=== PATIENT | female | born 1945 | race Caucasian/White ===

== ENCOUNTER 2020-11-09 18:31 | Inpatient (IN) | payer BC, OTHER ==
[~2020-11-09] VITALS: Ht 160 cm; Wt 83.0 kg
[2020-11-09 18:33] VITALS: Ht 160 cm; Wt 83.0 kg
[2020-11-09 19:36] LABS: BASOPHIL % 0.3 % (0.2-1.3); PLATELET COUNT 346 x10^3mcL (179-408)
[2020-11-09 19:39] LABS: CALCIUM 8.5 mg/dL (8.5-10.1); CARBON DIOXIDE 23.5 mmol/L (21-32); CHLORIDE SERUM 98 mmol/L (98-107); CREATININE SERUM 1.5 mg/dL (0.6-1.0); GLUCOSE SERUM 306 mg/dL (74-106); POTASSIUM SERUM 4.2 mmol/L (3.5-5.1); SODIUM SERUM 134 mmol/L (136-145)
--- NOTE | 2020-11-09 19:41 | NUR ---
PT TAKEN TO EKG WITH EMT KEVIN.
[2020-11-09 19:43] LABS: ALKALINE PHOSPHATASE 63 U/L (46-116); ALT/SGPT 19 U/L (14-59); AST/SGOT 24 U/L (15-37); BILIRUBIN TOTAL 0.3 mg/dL (0.20-1.00); LACTIC DEHYDROGENASE (LDH) 298 U/L (100-190)
[2020-11-09 19:44] LABS: ALBUMIN 3.2 g/dL (3.4-5.0); TOTAL PROTEIN, SERUM 8.7 g/dL (6.4-8.2)
[2020-11-09 19:45] LABS: C REACTIVE PROTEIN 16.8 mg/dL (<=0.9)
[2020-11-09 20:11] LABS: UA SPECIFIC GRAVITY 1.015 (1.005-1.035); microscopic required? YES; urine erythrocyte 1+ (NEGATIVE)
--- NOTE | 2020-11-09 21:18 | NUR ---
PT FOUND IN HALLWAY, AND STATED SHE WAS TAKEN BACK FOR BLOOD DRAW, HOWEVER PT WAS COUGHING AND D-SATTING. PT LABS NOT DRAWN, BROUGHT BACK TO TENT PT IS COVID+ AND PLACED ON 2L NC O2. PT SAT NOW @94%.
--- NOTE | 2020-11-09 22:55 | NUR ---
PT IS SATTING AT 97% ON 2L NC. NO ACUTE DISTRESS NOTED AT THIS TIME.
--- NOTE | 2020-11-10 01:02 | NUR ---
PT PRESENTS TO ED WITH C/C OF "ASTHMA" X3 DAYS. PT REPORTS +COVID TEST X8 DAYS AGO AND INCREASED SOB X3 DAYS. PT DENIES N/V/D/C, DENIES FEVERS, AND HAS NON PRODUCTIVE COUGH. PT IS ON 4L VIA NC. PT IS AA&OX4, RESP E/U, NAD NOTED AT THIS TIME. CANCER REGISTRAR TELEPHONE USED, SPOKE WITH SEAN TO COMMUNICATE WITH PT. CALL LIGHT IS WITHIN REACH.
--- NOTE | 2020-11-10 01:07 | NUR ---
PT DAUGHTER WOULD LIKE TO BE UPDATED WHEN POSSIBLE. [phone] JAVON ORELLANA.
--- NOTE | 2020-11-10 01:56 | NUR ---
PT MEDICATED PER MD ORDER. PT VERBALIZED UNDERSTANDING OF MEDICATION PRIOR TO ADMINISTRATION, CALL LIGHT IS WITHIN REACH. UTILIZED ENVIRONMENTAL HEALTH SAFETY MANAGER TELEPHONES WITH SHOT HOLE SHOOTER SEAN TO EDUCATE PT ON MEDS.
--- NOTE | 2020-11-10 02:35 | NUR ---
PT MEDICATED PER MD ORDER. PT VERBALIZED UNDERSTANDING OF MEDICATION PRIOR TO ADMINISTRATION. CALL LIGHT IN REACH.
--- NOTE | 2020-11-10 02:52 | NUR ---
ATTEMPTED TO CALL REPORT TO ERNESTINA BURRIS, TOLD THAT WILL RETURN MY CALL SHORTLY.
--- NOTE | 2020-11-10 03:09 | NUR ---
REPORT GIVEN TO ERNESTINA BURRIS TO ASSUME CARE OF PT.
[2020-11-10 04:12] VITALS: BP 129/67
[2020-11-10 06:24] VITALS: BP 129/68
--- NOTE | 2020-11-10 06:49 | NUR ---
RECEIVED PT FROM ER AT 0330. AOX4, MOZAMBICAN SPEAKING. PT IS ON 4L O2 VIA NC AND SATURATING AT 99%. PT DENIES PAIN BUT IS HAVING A WET COUGH. MANAGED TO SLEEP THE REST OF THE NIGHT. ALL NEEDS ATTENDED TO.
--- NOTE | 2020-11-10 08:00 | NUR ---
RECD PT AAOX4; CYMRAES SPEAKING; NO SOB; O2 3L/NC IN USE; LUNGS DIM ON AUSCULTATION BRITNEY; DENIES CP; PULSES PALPABLE BUE AND BLE; NO EDEMA NOTED; ABD IS SOFT AND NONTENDER; BRP; VOIDS FREELY; SL ON THE LFA INTACT; COVID PRECAUTION IN PLACE; FALL AND SAFETY PRECAUTION REINFORCED; WILL CONTINUE TO MONITOR STATUS.
[2020-11-10 08:49] VITALS: BP 156/74
[2020-11-10 11:21] LABS: BASOPHIL % 0.5 % (0.2-1.3); PLATELET COUNT 325 x10^3mcL (179-408)
[2020-11-10 11:39] LABS: ALKALINE PHOSPHATASE 58 U/L (46-116); ALT/SGPT 23 U/L (14-59); AST/SGOT 25 U/L (15-37); BILIRUBIN TOTAL 0.24 mg/dL (0.20-1.00); CALCIUM 9.3 mg/dL (8.5-10.1); CARBON DIOXIDE 22.8 mmol/L (21-32); CHLORIDE SERUM 102 mmol/L (98-107); CREATININE SERUM 1.4 mg/dL (0.6-1.0); GLUCOSE SERUM 191 mg/dL (74-106); POTASSIUM SERUM 3.8 mmol/L (3.5-5.1); SODIUM SERUM 138 mmol/L (136-145)
[2020-11-10 11:41] LABS: ALBUMIN 2.9 g/dL (3.4-5.0); TOTAL PROTEIN, SERUM 8.5 g/dL (6.4-8.2)
[2020-11-10 12:04] VITALS: BP 152/62
--- NOTE | 2020-11-10 13:30 | NUR ---
PT SIGNED THE CONSENT FOR PLASMA CONVALESCENT WITH VERBAL UNDERSTANDING; QUESTIONS AND CONCERNS ANSWERED; SALES PLANNING ANALYST (EZEKIEL MUHAMMAD) USED; DR. BELLA MADE AWARE ABOUT PT'S REQUEST FOR COUGH MED.
[2020-11-10 16:44] VITALS: BP 145/60
--- NOTE | 2020-11-10 17:15 | NUR ---
NO SOB THIS SHIFT. O2 USE IS ON/OFF.
[2020-11-10 17:20] LABS: ALKALINE PHOSPHATASE 58 U/L (46-116); ALT/SGPT 23 U/L (14-59); AST/SGOT 18 U/L (15-37); BILIRUBIN TOTAL 0.25 mg/dL (0.20-1.00); CALCIUM 9.4 mg/dL (8.5-10.1); CARBON DIOXIDE 20.5 mmol/L (21-32); CHLORIDE SERUM 103 mmol/L (98-107); CREATININE SERUM 1.3 mg/dL (0.6-1.0); GLUCOSE SERUM 209 mg/dL (74-106); POTASSIUM SERUM 4.1 mmol/L (3.5-5.1); SODIUM SERUM 139 mmol/L (136-145); TOTAL PROTEIN, SERUM 8.5 g/dL (6.4-8.2)
[2020-11-10 17:25] LABS: BASOPHIL % 0.6 % (0.2-1.3); PLATELET COUNT 332 x10^3mcL (179-408); RED CELL DISTRIBUTION WIDTH 13.8 % (12.3-17.7)
--- NOTE | 2020-11-10 19:45 | NUR ---
PATIENT REPORT FROM DAY NURSE. PATIENT BREATHING EVEN AND UNLABORED ON 3L NS 96% SPO2 DIM AT BASES. PATIENT HAS DRY COUGH. C/O THROAT PAIN. NO S/S OF DISTRESS. GEN WEAKNESS. AXOX4 LAC SL. NO REPORT FOM MONITORS. SKIN INTACT ACTIVE BOWELSX4. VOIDS FREELT BSC, ASSIST TO RESTROOM. BED IN LOW POSITION, SIDE RAILS UPX2 CALL LIGHT WITHIN REACH. ENCOURAGED PATIENT TO USE THE CALL LIGHT WHEN SHE NEEDS ASSISTANCE. WILL CONTINUE TO MONITOR PATIENT AND OFFER SUPPORT.
[2020-11-10 19:53] VITALS: BP 142/51
--- NOTE | 2020-11-11 01:10 | NUR ---
PATIENT RESTING EYES CLOSED. PATIENT BREATHING EVEN AND UNLABORED ON 3L NC. NO S/S OF DISTRESS. WILL CONTINUE TO MONITOR PATIENT AND OFFER SUPPORT.
--- NOTE | 2020-11-11 01:10 | NUR ---
CALLED BLOOD BANK AND THEY INDICATED THAT PLASMA WILL NOT BE READY. LAB WAS UNABLE TO GIVE A TIME FRAME OF POSSIBLE PICK-UP. WILL CONTINUE TO CONTACT BLOOD BANK FOR UPDATES.
--- NOTE | 2020-11-11 04:00 | NUR ---
SPOKE WITH BLOOD BANK AND THEY STATED THAT THERE WILL NOT BE ANYONE IN THE LAB WORKING TONIGHT OR TOMORROW. SO NO ONE WILL RECIEVE PLASMA. WILL LET ONCOMING SHIFT AWARE.
[2020-11-11 04:15] VITALS: BP 129/56
--- NOTE | 2020-11-11 06:08 | NUR ---
PATIENT AXOX4 NC 3L BREATHING EVEN AND UNLABORED. TELE 49 NSR. PATIENT C/O PAIN FROM COUGHING, REQUESTING COUGH MEDICATION. NO S/S OF DISTRESS. WILL PASS ON TO DAY SHIFT.
[2020-11-11 07:13] LABS: BASOPHIL % 0.2 % (0.2-1.3); PLATELET COUNT 366 x10^3mcL (179-408); RED CELL DISTRIBUTION WIDTH 13.6 % (12.3-17.7)
[2020-11-11 07:50] LABS: ALKALINE PHOSPHATASE 51 U/L (46-116); ALT/SGPT 24 U/L (14-59); AST/SGOT 18 U/L (15-37); BILIRUBIN TOTAL 0.22 mg/dL (0.20-1.00); CALCIUM 9.2 mg/dL (8.5-10.1); CARBON DIOXIDE 24.8 mmol/L (21-32); CHLORIDE SERUM 105 mmol/L (98-107); CREATININE SERUM 1.3 mg/dL (0.6-1.0); GLUCOSE SERUM 128 mg/dL (74-106); POTASSIUM SERUM 3.9 mmol/L (3.5-5.1); SODIUM SERUM 141 mmol/L (136-145); TOTAL PROTEIN, SERUM 8.1 g/dL (6.4-8.2)
[2020-11-11 07:53] LABS: ALBUMIN 2.8 g/dL (3.4-5.0)
[2020-11-11 10:02] VITALS: BP 116/67
[2020-11-11 10:07] VITALS: BP 115/64
[2020-11-11 12:04] VITALS: BP 144/56
[2020-11-11 16:44] VITALS: BP 141/55
--- NOTE | 2020-11-11 19:45 | NUR ---
PATIENT REPOSRT FROM JAVON BURRIS. NO S/S OF DISTRESS OR DISCOMFORT. PATIENT ON 2LNC BREATHING EVEN AND UNLABORED. DRY COUGH. HOB 30 DEGREE. GEN WEAKNESS. IV INTACT. NO REPORTS FROM TELE. ACTIVE BOWELS X4 SKIN INTACT NO BREAKDOWN. STRONG RADIAL AND PEDAL PULSES. CALM AND COOPERATIVE WITH CARE. WILL CONTINUE TO MONITOR PATIENT AND OFFER SUPPORT.
[2020-11-11 20:31] VITALS: BP 153/57
--- NOTE | 2020-11-11 22:03 | NUR ---
PATIENT RESTING, DRY COUGH. NO S/S OF DISTRESS OF DISCOMFORT. COUGH MEDICATION GIVEN AND ORDERED. WILL CONTINUE TO MONITOR PATIENT AND OFFER SUPPORT.
--- NOTE | 2020-11-12 00:16 | NUR ---
PATIENT RESTING. NO S/S OF DISTRESS OR DISCOMFORT. PATIENT RESTING WITH EYES CLOSED. NO REPORTS FROM MONITORS. [facility] ONTINUE TO MONITOR PATIENT AND OFFER SUPPORT.
[2020-11-12 05:10] VITALS: BP 141/55
--- NOTE | 2020-11-12 05:43 | NUR ---
PATIENT RESTING EYES CLOSED. NO S/S OF DISTRESS OR DISCOMFORT. PATIENT HAS A DRY COUGH. TELE SHOWS SOME PACs. NO CP AT THIS TIME. PATIENT C/O OF GENERALIZED PAIN DURING THE NIGHT, PRN TYLENOL GIVEN. PATIENT WAS ABLE TO REST AFTER MEDICATION. WILL ENDORSE TO NEXT SHIFT.
[2020-11-12 07:41] LABS: BASOPHIL % 0.2 % (0.2-1.3); PLATELET COUNT 394 x10^3mcL (179-408); RED CELL DISTRIBUTION WIDTH 13.3 % (12.3-17.7)
--- NOTE | 2020-11-12 08:07 | NUR ---
100% O2 SAT ON 2L VIA NC AT REST. PATIENT SATURATIONG 95% ON ROOM AIR AT REST, DROP TO 91% STILL ON ROOM AIR, MOVING IN BED. WILL KEEP ON ROOM AIR AND MONITOR.
[2020-11-12 08:09] VITALS: BP 153/66
[2020-11-12 08:55] LABS: ALKALINE PHOSPHATASE 53 U/L (46-116); ALT/SGPT 25 U/L (14-59); AST/SGOT 16 U/L (15-37); BILIRUBIN TOTAL 0.25 mg/dL (0.20-1.00); CALCIUM 9.2 mg/dL (8.5-10.1); CARBON DIOXIDE 28.5 mmol/L (21-32); CHLORIDE SERUM 106 mmol/L (98-107); CREATININE SERUM 1.3 mg/dL (0.6-1.0); GLUCOSE SERUM 91 mg/dL (74-106); POTASSIUM SERUM 4.2 mmol/L (3.5-5.1); SODIUM SERUM 144 mmol/L (136-145); TOTAL PROTEIN, SERUM 7.8 g/dL (6.4-8.2)
[2020-11-12 09:07] LABS: ALBUMIN 2.7 g/dL (3.4-5.0)
[2020-11-12] MEDS ORDERED: ELIQUIS2.5 MG PO (10:48)
[2020-11-12 10:55] VITALS: BP 153/66
[2020-11-12 11:59] VITALS: BP 121/50
[2020-11-12 16:12] VITALS: BP 128/63
--- NOTE | 2020-11-12 17:32 | NUR ---
PATIENT SATURATING 93% ON RAOOM AIR WHILE AMBULATING IN THE ROOM FROM BED TO DOOR 3 TIMES.
== END 2020-11-12 18:55 | disposition home or self-care (01) | DRG 177 ==
LOC: ED 18:31 → DU 22:24
PROVIDERS: Emergency Medicine; ADMIT Hospitalist; ATTEND Hospitalist
DX: U07.1 COVID-19 (principal); J12.89 Other viral pneumonia; J96.01 Acute respiratory failure with hypoxia; N17.9 Acute kidney failure, unspecified; D68.69 Other thrombophilia; I12.9 Hypertensive chronic kidney disease with stage 1 through stage 4 chronic kidney disease, or unspecified chronic kidney disease; N18.9 Chronic kidney disease, unspecified; J45.909 Unspecified asthma, uncomplicated; D64.9 Anemia, unspecified; E11.22 Type 2 diabetes mellitus with diabetic chronic kidney disease; Z79.899 Other long term (current) drug therapy
CPT/HCPCS: 36600; 82962; 83880; 85378; 87804; G0378; J0456; J0696; J1100; J1644; J7050; J7060; U0003